=== PATIENT | female | born 1950 | race African-American/Black ===

== ENCOUNTER 2018-01-24 15:26 | Observation (INO) ==
--- NOTE | 2018-01-24 15:38 | Emergency Department Note ---
Disposition Clinical Impression: Lightheaded Chest pain Qualifiers: Chest pain type: unspecified Qualified Code(s): R07.9 - Chest pain, unspecified Disposition: Admitted As Inpatient Condition: Good Time of Disposition: 18:58 General Adult HPI - General Stated complaint: "dizziness,weak,abd pain" Time Seen by Provider: 01/24/18 15:38 Source: patient Mode of arrival: ambulatory Limitations: no limitations Nursing Notes Reviewed: Yes Vital Signs Reviewed: Yes - History of Present Illness HPI Narrative: I have reperformed and reviewed the history documented by the medical student, and I confirm its accuracy except as noted below. - Related Data Home Medications Medication Instructions Recorded Confirmed Blood Pressure Pills 11/17/16 Diabetic Pills 11/17/16 Previous Rx's Medication Instructions Recorded Meclizine [Antivert] 25 mg PO TID #15 tablet 10/09/15 Benzonatate [Tessalon] 100 mg PO TID #15 capsule 11/17/16 Guaifenesin [Mucinex] 600 mg PO BID #30 tab.er.12h 11/17/16 PredniSONE [Deltasone] 20 mg PO DAILY #12 tablet 11/17/16 levoFLOXacin [Levaquin] 500 mg PO DAILY #10 tablet 11/17/16 Lidocaine Patch [Lidoderm 5% patch] 1 each TP DAILY #10 adh..patch 12/12/16 OxyCODONE/APAP 5/325 [Percocet 1 each PO Q6HR PRN #10 tablet 12/12/16 5/325 MG] Allergies Allergy/AdvReac Type Severity Reaction Status Date / Time Xuptzna-Pgd-Csu Reductase Allergy Anaphylaxis Verified 01/24/18 15:46 Inhibitor Sulfa (Sulfonamide Allergy Anaphylaxis Verified 01/24/18 15:46 Antibiotics) All systems ED: reviewed and negative except as stated. Review of Systems: As Per HPI Constitutional: Denies: fever, chills Respiratory: Reports: cough (Increase.), dyspnea (Occasional, this time.), spu neel production Gastrointestinal: Reports: abdominal pain (Patient states earlier. Has resolved. Has also been having intermittent cramping.) Neurological: Reports: other ("Dizziness." Denies rotational.). Denies: headache Past Medical History - Past Medical History Attestation: Yes The following information was validated with the patient. Source: patient Medical history: Reports: COPD, diabetes, hypertension, other Psychiatric history: Reports: no psych history - Social History Smoking Status: Current every day smoker Smokeless Tobacco Status: No Alcohol use: Reports: none Drug use: Reports: none Physical Exam - General Limitations: no limitations General appearance: alert, in no apparent distress - Head Head exam: atraumatic, normocephalic, normal inspection - Eye Eye exam: Present: normal appearance, PERRL, EOMI. Absent: scleral icterus - ENT ENT exam: normal exam, normal oropharynx, mucous membranes moist - Neck Neck exam: Present: normal inspection, full ROM, trachea midline - Chest Chest inspection: Present: normal inspection, symmetric chest wall rise - Respiratory Respiratory exam: Present: normal lung sounds bilaterally. Absent: respiratory distress, accessory muscle use - Cardiovascular Cardiovascular exam: Present: regular rate, normal rhythm, normal heart sounds - Abdominal Exam Abdominal exam: Present: soft, Non-Tender. Absent: tenderness, distention, guarding, rebound, rigidity, organomegaly, Humphreys's sign, Rovsing's sign, tenderness at McBurney's Point - Extremities Exam Extremities exam: Present: normal inspection, full ROM, normal capillary refill. Absent: tenderness, pedal edema, calf tenderness - Back Exam Back exam: Present: normal inspection, full ROM. Absent: tenderness - Neurological Exam Neurological exam: Present: alert, oriented X3, CN II-XII intact, other (Good Finger to nose and [id number].). Absent: motor sensory deficit - Psychiatric Psychiatric exam: Present: normal affect, normal mood - Skin Skin exam: Present: warm, dry, intact, normal color Course Course Narrative: Female patient presenting to the emergency department complaining of a lightheadedness feeling. Does have a history of vertigo. Has tried meclizine to help with this with no relief. Is neurologically intact. Cranial nerves II through XII are intact and she has good finger to nose and heel to viveros. She do es report a lightheadedness. She describes the dizziness that she is reporting as a lightheaded feeling. This is worse after she stands up. She denies a rotational component. Patient is also complaining of an episode of shortness of breath associated with chest pain and epigastric pain that radiated up to her right neck are to arrival here. Patient does have an history of a stent placed. Patient does take a baby aspirin at home and Plavix. We did provide her with low-dose aspirin while here. She states that the chest pain is gone at this time. She does report a cough for the past week. Chest x-ray and basic lab workup was unremarkable. She does report a decreased by mouth intake as she is just feeling weak recently. She also complains of occasional cramping sensation throughout her abdomen. - Reevaluation(s) Reevaluation #1: We will admit patient to the hospital for her chest pain episode. She does have an elevated heart score because she does have a history of known coronary artery disease. - Consultations Consultation #1: Dr Hdz accepted Pt in stable condition. She is requesting a CT head. We did place is ordered for her and she will be following up with the imaging. Time: 18:09 Vital Signs Temperature 98.4 F 01/24/18 15:45 Pulse Rate 63 01/24/18 15:45 Respiratory Rate 18 01/24/18 15:45 Blood Pressure 130/73 01/24/18 15:45 O2 Sat by Pulse Oximetry 98 01/24/18 15:45 Temperature 98.4 F 01/24/18 16:00 Pulse Rate 63 01/24/18 16:00 Respiratory Rate 18 01/24/18 16:00 Blood Pressure 130/73 01/24/18 16:00 O2 Sat by Pulse Oximetry 98 01/24/18 16:00 Oxygen Delivery Oxygen Delivery Room Air Medical Decision Making - Medical Records Medical records reviewed: Yes I reviewed the patient's medical records. - Lab Data Lab results reviewed: Yes I reviewed the patient's lab results. Result diagrams: 01/24/18 16:33 01/24/18 16:33 Lab Results 01/24/18 01/24/18 01/24/18 Range/Units 16:33 16:33 16:33 WBC 9.4 (4.3-11.1) K/mcL RBC 4.39 (3.82-4.97) M/mcL Hgb 14.4 (11.5-15.4) g/dL Hct 42.6 (35.3-44.9) % MCV 97.0 (83.0-100.0) fL MCH 32.8 (28.0-33.3) pg MCHC 33.8 (31.6-35.5) g/dL RDW 13.3 (11.5-14.5) % Plt Count 231 (140-400) K/mcL MPV 10.2 (9.4-12.4) fL Immature Gran % 0.2 (0-4) % Seg Neutrophils % 68.9 % Lymphocytes % 20.6 % Monocytes % 6.1 % Eosinophils % 3.8 % Basophils % 0.4 % Neutrophils # 6.5 (1.6-8.9) K/mcL Lymphocytes # 1.9 (0.6-4.6) K/mcL Monocytes # 0.6 (0.0-1.3) K/mcL Eosinophils # 0.4 (0.0-0.6) K/mcL Basophils # 0.0 (0.0-0.2) K/mcL PT 11.9 (9.4-12.1) Seconds INR 1.1 APTT 33.4 (26.0-36.0) Seconds Sodium (136-145) mEq/L Potassium (3.5-5.1) mEq/L Chloride (98-107) mEq/L Carbon Dioxide (23-29) mEq/L BUN (8-23) mg/dL Creatinine (0.60-1.20) mg/dL Est GFR ( Amer) (> 60) Est GFR (Non-Af Amer) (> 60) BUN/Creatinine Ratio (6-26) Glucose (70-105) mg/dL Calculated Osmolality (280-300) Calcium (8.6-10.3) mg/dL Troponin I (< 0.04) ng/mL B-Natriuretic Peptide 119 H (Less than 100) pg/mL 01/24/18 Range/Units 16:33 WBC (4.3-11.1) K/mcL RBC (3.82-4.97) M/mcL Hgb (11.5-15.4) g/dL Hct (35.3-44.9) % MCV (83.0-100.0) fL MCH (28.0-33.3) pg MCHC (31.6-35.5) g/dL RDW (11.5-14.5) % Plt Count (140-400) K/mcL MPV (9.4-12.4) fL Immature Gran % (0-4) % Seg Neutrophils % % Lymphocytes % % Monocytes % % Eosinophils % % Basophils % % Neutrophils # (1.6-8.9) K/mcL Lymphocytes # (0.6-4.6) K/mcL Monocytes # (0.0-1.3) K/mcL Eosinophils # (0.0-0.6) K/mcL Basophils # (0.0-0.2) K/mcL PT (9.4-12.1) Seconds INR APTT (26.0-36.0) Seconds Sodium 139 (136-145) mEq/L Potassium 3.7 (3.5-5.1) mEq/L Chloride 106 (98-107) mEq/L Carbon Dioxide 26 (23-29) mEq/L BUN 14 (8-23) mg/dL Creatinine 0.59 L (0.60-1.20) mg/dL Est GFR ( Amer) > 60 (> 60) Est GFR (Non-Af Amer) > 60 (> 60) BUN/Creatinine Ratio 24 (6-26) Glucose 157 H (70-105) mg/dL Calculated Osmolality 292 (280-300) Calcium 9.6 (8.6-10.3) mg/dL Troponin I < 0.03 (< 0.04) ng/mL B-Natriuretic Peptide (Less than 100) pg/mL - Radiology Data Radiology results reviewed: Yes I reviewed the patient's radiology results. Chest X-Ray 01/24/18 16:12 IMPRESSION: No acute process. D/ / Eric Smith MD / Eric Smith MD Interpreting Provider: Eric Smith MD - EKG Data EKG #1 EKG attestation: Yes I reviewed and interpreted this EKG. EKG results narrative: Normal sinus rhythm at a rate of 60. AK interval is 252. QRS duration is 100. QT is 399. QTC is 399. No signs of acute ischemia. Does have 2 PVCs noted on this EKG.
--- NOTE | 2018-01-24 16:16 | Emergency Department Note ---
Disposition Clinical Impression: Abdominal pain Qualifiers: Abdominal location: generalized Qualified Code(s): R10.84 - Generalized abdominal pain Disposition: Still a Patient General Adult HPI - General Chief complaint: ED Abdominal Pain Stated complaint: "dizziness,weak,abd pain" Time Seen by Provider: 01/24/18 15:38 Source: patient Limitations: no limitations Nursing Notes Reviewed: Yes Vital Signs Reviewed: Yes - History of Present Illness HPI Narrative: Attestation note: Patient was seen with the emergency medicine resident/nurse practitioner/physician emergency room physician assistant/transitional resident/medical student: Dr. Gloria Alfred I have personally performed a face to face evaluation on this patient. I have reviewed and agree with history and physical examination patient management and disposition. Briefly the salient points of the case are as follows: 67-year-old female presents with chest and abdominal pain some cough low-grade fever no chills no vomiting or diarrhea. Chest is occasional rhonchi afebrile with stable vital signs chest x-ray and screening labs are pending. Disposition pending Pain Scale: 3 - Related Data Home Medications Medication Instructions Recorded Confirmed Blood Pressure Pills 11/17/16 Diabetic Pills 11/17/16 Previous Rx's Medication Instructions Recorded Meclizine [Antivert] 25 mg PO TID #15 tablet 10/09/15 Benzonatate [Tessalon] 100 mg PO TID #15 capsule 11/17/16 Guaifenesin [Mucinex] 600 mg PO BID #30 tab.er.12h 11/17/16 PredniSONE [Deltasone] 20 mg PO DAILY #12 tablet 11/17/16 levoFLOXacin [Levaquin] 500 mg PO DAILY #10 tablet 11/17/16 Lidocaine Patch [Lidoderm 5% patch] 1 each TP DAILY #10 adh..patch 12/12/16 OxyCODONE/APAP 5/325 [Percocet 1 each PO Q6HR PRN #10 tablet 12/12/16 5/325 MG] Allergies Allergy/AdvReac Type Severity Reaction Status Date / Time Lpeczbk-Mlb-Uza Reductase Allergy Anaphylaxis Verified 01/24/18 15:46 Inhibitor Sulfa (Sulfonamide Allergy Anaphylaxis Verified 01/24/18 15:46 Antibiotics) Past Medical History - Past Medical History Medical history: Reports: COPD, diabetes, hypertension, other Psychiatric history: Reports: no psych history - Social History Smoking Status: Current every day smoker Smokeless Tobacco Status: No Alcohol use: Reports: none Drug use: Reports: none Physical Exam - General Limitations: no limitations General appearance: alert, in no apparent distress Course Vital Signs Temperature 98.4 F 01/24/18 15:45 Pulse Rate 63 01/24/18 15:45 Respiratory Rate 18 01/24/18 15:45 Blood Pressure 130/73 01/24/18 15:45 O2 Sat by Pulse Oximetry 98 01/24/18 15:45 Temperature 98.4 F 01/24/18 16:00 Pulse Rate 63 01/24/18 16:00 Respiratory Rate 18 01/24/18 16:00 Blood Pressure 130/73 01/24/18 16:00 O2 Sat by Pulse Oximetry 98 01/24/18 16:00 Oxygen Delivery Oxygen Delivery Room Air
[2018-01-24] MEDS ORDERED: Aspirin 325 MG TABLET PO ONE (16:41)
--- NOTE | 2018-01-24 16:44 | Emergency Department Note ---
Disposition Clinical Impression: Abdominal pain Qualifiers: Abdominal location: generalized Qualified Code(s): R10.84 - Generalized abdominal pain Disposition: Still a Patient Forms: ED Satisfaction Letter, Work/School Release Dizziness HPI - General Chief Complaint: ED Abdominal Pain Stated Complaint: "dizziness,weak,abd pain" Time Seen by Provider: 01/24/18 15:38 Source: patient, family, other (housemate) Limitations: no limitations Vital Signs Reviewed: Yes - History of Present Illness HPI Narrative: Ms. Maguire is a 67yof with hx of vertigo, CAD with stent placed in 2005, HTN, DM2, COPD 2/2 smoking. She presents to the ED with complaint of intractable dizziness. Dizziness has been ongoing for the last 4 days, says it feels different than her usual vertigo, is a/w positional changes, feels lightheaded and "wonky" when she gets up to walk, has difficutly walking d/t dizziness, denies falling to one side, denies syncope/falls; pt has not taken her antivert., denies any recent changes in her blood pressure meds. Pt reports that she has been "fighting a cold" for the last 2-3 weeks, has a productive cough increased from baseline and cold sweats/chills. Per housemate, she has been sleeping significantly more in the last 4-5 days; pt admits to generalized malaise and feeling fatigued. Pt also notes that she has been having some lower abd cramping over the last few days, not associated with food, no constipation/diarrhea/hematochezia/melena. 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 Pt Subjective Complaint: lightheadedness, difficulty walking Onset (ago): day(s) (4) Timing: gradual onset Description: lightheadedness, off-balance, difficulty walking History of similar episodes: Yes (says this feels different than her usual vertigo) History of trauma: No Severity: moderate Improves with: remaining still, rest, other (laying down) Worsens with: position Associated symptoms: Reports: ataxia, chest pain, chills, malaise, shortness of breath, weakness (generalized). Denies: confusion, diaphoresis, fever, syncope, vision changes, nausea, vomiting, palpitations - Related Data Home Medications Medication Instructions Recorded Confirmed Blood Pressure Pills 11/17/16 Diabetic Pills 11/17/16 Previous Rx's Medication Instructions Recorded Meclizine [Antivert] 25 mg PO TID #15 tablet 10/09/15 Benzonatate [Tessalon] 100 mg PO TID #15 capsule 11/17/16 Guaifenesin [Mucinex] 600 mg PO BID #30 tab.er.12h 11/17/16 PredniSONE [Deltasone] 20 mg PO DAILY #12 tablet 11/17/16 levoFLOXacin [Levaquin] 500 mg PO DAILY #10 tablet 11/17/16 Lidocaine Patch [Lidoderm 5% patch] 1 each TP DAILY #10 adh..patch 12/12/16 OxyCODONE/APAP 5/325 [Percocet 1 each PO Q6HR PRN #10 tablet 12/12/16 5/325 MG] Allergies Allergy/AdvReac Type Severity Reaction Status Date / Time Lefaebl-Yjy-Kga Reductase Allergy Anaphylaxis Verified 01/24/18 15:46 Inhibitor Sulfa (Sulfonamide Allergy Anaphylaxis Verified 01/24/18 15:46 Antibiotics) Review of Systems: As Per HPI Constitutional: Reports: chills (cold sweats), weakness (generalized, non- focal). Denies: fever Eyes: Denies: vision change ENT ED: Denies: throat pain, hearing loss, epistaxis Cardiovascular: Reports: chest pain (1hr DAILY SAL[employer] AUDIT CLERK). Denies: palpitations, dyspnea on exertion, edema, syncope Respiratory: Reports: cough, sputum production (increased from baseline). De nies: dyspnea, wheezes, hemoptysis Gastrointestinal: Reports: abdominal pain (lower abd cramping). Denies: nausea, vomiting, diarrhea, constipation, melena, hematochezia Genitourinary: Denies: urgency, dysuria, frequency, hematuria, discharge Musculoskeletal: Denies: arthralgia, myalgia Integumentary: Denies: rash, lesions Neurological: Reports: weakness (generalized, non-focal), abnormal gait (2/2 dizziness upon position change), vertigo. Denies: headache, numbness, p aresthesias, confusion Endocrine: Reports: fatigue Hematological/Lymphatic: Reports: other (on 81mg ASA and plavix ) Past Medical History - Past Medical History Medical history: Reports: COPD, diabetes, hypertension, other Psychiatric history: Reports: no psych history - Social History Smoking Status: Current every day smoker Smokeless Tobacco Status: No Alcohol use: Reports: none Drug use: Reports: none Physical Exam - General Limitations: no limitations General appearance: alert, in no apparent distress Course Vital Signs Temperature 98.4 F 01/24/18 15:45 Pulse Rate 63 01/24/18 15:45 Respiratory Rate 18 01/24/18 15:45 Blood Pressure 130/73 01/24/18 15:45 O2 Sat by Pulse Oximetry 98 01/24/18 15:45 Temperature 98.4 F 01/24/18 16:00 Pulse Rate 63 01/24/18 16:00 Respiratory Rate 18 01/24/18 16:00 Blood Pressure 130/73 01/24/18 16:00 O2 Sat by Pulse Oximetry 98 01/24/18 16:00 Oxygen Delivery Oxygen Delivery Room Air
[2018-01-24 16:51] LABS: Basophils % 0.4 %; Eosinophils # 0.4 K/mcL (0.0-0.6); Eosinophils % 3.8 %; Hematocrit 42.6 % (35.3-44.9); Hemoglobin 14.4 g/dL (11.5-15.4); Immature Granulocytes % 0.2 % (0-4); Lymphocytes # 1.9 K/mcL (0.6-4.6); Lymphocytes % 20.6 %; Mean Corpuscular HGB Conc 33.8 g/dL (31.6-35.5); Mean Corpuscular Hemoglobin 32.8 pg (28.0-33.3); Mean Platelet Volume 10.2 fL (9.4-12.4); Monocytes # 0.6 K/mcL (0.0-1.3); Monocytes % 6.1 %; Neutrophils # 6.5 K/mcL (1.6-8.9); Platelet Count 231 K/mcL (140-400); Red Blood Count 4.39 M/mcL (3.82-4.97); Red Cell Distribution Width 13.3 % (11.5-14.5); Segmented Neutrophils % 68.9 %
[2018-01-24 16:59] LABS: INR 1.1; Prothrombin Time 11.9 Seconds (9.4-12.1)
[2018-01-24 17:01] LABS: Activated Partial Thrombo Time 33.4 Seconds (26.0-36.0)
[2018-01-24 17:13] LABS: BUN/Creatinine Ratio 24 (6-26); Blood Urea Nitrogen 14 mg/dL (8-23); Calcium 9.6 mg/dL (8.6-10.3); Carbon Dioxide 26 mEq/L (23-29); Chloride 106 mEq/L (98-107); Glucose 157 mg/dL (70-105); Osmolality,Calculated 292 (280-300); Potassium 3.7 mEq/L (3.5-5.1); Sodium 139 mEq/L (136-145); Troponin I < 0.03 ng/mL (< 0.04); eGFR For Non-African Americans > 60 (> 60)
[2018-01-24] MEDS ORDERED: diazePAM 10 MG/2 ML SYRINGE IVP STA (17:39)
--- NOTE | 2018-01-24 19:36 | Internal Med History&Physical ---
Addendum entered and electronically signed by Trice Laureano MD 01/26/18 06:39: Patient was seen and examined on 01/24/2018 Original Note: <Eulalia Jackson N - Last Filed: 01/25/18 01:56> Date of Encounter: 01/25/18 Time of Encounter: 19:36 Internal Medicine - H&P: HPI Chief complaint: Chest pain/dizziness/fatigue Admitted From: Emergency Dept History of present illness: Ms. Maguire is a 67 year old female with history of COPD, diabetes, hypertension, vertigo, and prior heart stents. She presents to the ED complaining of worsening dizziness that originally began last . She describes this sensation as feeling "woozy", and denies any loss of consciousness or spinning sensation. She states that she is still able to ambulate if she focuses on what she is doing, though she does still stagger a bit. She says that these episodes of dizziness are triggered by changes in position, particularly when she stands. She reports experiencing crampy abdominal pain even without a dizzy sensation. She has denies any alleviating factors other than rest. She reports no aggravating factors. She also reports having experienced cramping abdominal pain that moved from her lower abdomen up into her chest and finally ended in the right side of her neck immediately prior to presenting to the emergency department today. She also complained of feeling increasingly fatigued, and endorsed recent chest congestion and poor PO intake. Initial vital signs obtained in the ED were within normal limits. Laboratory studies were unremarkable, with the exception of a minimally elevated BNP of 119. Chest x-ray demonstrated no acute process. EKG demonstrated no signs of acute ischemia; however, considering the patient's prior stent history and elevated cardiac risk factors, she was admitted to the hospitalist service for overnight monitoring. Patient was seen and evaluated at the bedside. She endorsed no acute complaints or concerns, and stated only that she was tired. Review of systems was significant for one headache that occurred sometime last week, recent sinus and chest congestion, and mild productive cough several days ago that was improved with [id number] decongestants. Patient denied any changes in vision, nausea, vomiting, changes in bowel habits, or increased lower extremity edema. Past Med Surg Social Fam HX - Past Medical History Medical history: COPD, diabetes, hypertension, other Psychiatric history: no psych history - Past Surgical History Additional surgical history: heart stent, eye procedure, knee surgery breast biopsy - Social History Smoking Status: Current every day smoker Smokeless Tobacco Status: No Alcohol use: none Drug use: none - Family History Mother Hx Family Cardiac Disorders: Yes Hx Family Endocrine Disorder: Yes (dm) Father Hx Family Endocrine Disorder: Yes Internal Medicine - H&P: Meds Albuterol Sulfate [Ventolin Hfa] 8 gm IH QID PRN 01/24/18 [History] Aspirin [Lo-Dose Aspirin EC] 81 mg PO DAILY 01/24/18 [History] Clopidogrel [Plavix] 75 mg PO DAILY 01/24/18 [History] Fluticasone/Salmeterol [Advair 250-50 Diskus] 1 each IH BID 01/24/18 [History] Glipizide 01/24/18 [History] Liraglutide [Victoza 2-Maximo] 0.6 mg SQ DAILY 01/24/18 [History] Lisinopril [Zestril] 5 mg PO DAILY 01/24/18 [History] Lovastatin 10 mg PO DAILY 01/24/18 [History] Meclizine [Antivert] 25 mg PO DAILY 01/24/18 [History] Metoprolol [Lopressor] 25 mg PO HS 01/24/18 [History] Metoprolol [Lopressor] 100 mg PO QAM 01/24/18 [History] Pantoprazole Sodium 40 mg PO DAILY 01/24/18 [History] Primidone [Mysoline] 125 mg PO Q8HR 01/24/18 [History] hydroCHLOROthiazide [Hydrochlorothiazide] 12.5 mg PO DAILY 01/24/18 [History] Allergy/AdvReac Type Severity Reaction Status Date / Time Rctxzwm-Wfh-Xif Reductase Allergy Anaphylaxis Verified 01/24/18 15:46 Inhibitor Sulfa (Sulfonamide Allergy Anaphylaxis Verified 01/24/18 15:46 Antibiotics) All Systems PM: A 10-system review of systems was performed and is negative for pertinent findings except as documented above in the HPI. - Constitutional Vitals: Temp Pulse Resp BP Pulse Ox 98.4 F 71 18 143/68 98 01/24/18 16:00 01/24/18 17:33 01/24/18 17:33 01/24/18 17:33 01/24/18 17:33 Exam: GENERAL: Well-developed, well-nourished adult female lying in bed with her eyes closed. She does not appear to be in acute distress. HEENT: Atraumatic and normocephalic. CARDIOVASCULAR: Regular rate and rhythm. S1 and S2 present. No murmurs, gallops, or rubs appreciated. RESPIRATORY: Mildly decreased breath sounds bilaterally. Patient does have very mild expiratory wheezes on the left. Chest rises and falls symmetrically with respiration. No sensory muscle use noted. GASTROINTESTINAL: Active bowel sounds present 4 quadrants. Abdomen is soft, nontender, nondistended. EXTREMITIES: No clubbing, cyanosis, or edema. SKIN: Warm, dry, and intact. NEUROLOGIC: Patient answers questions appropriately and is cooperative with exam. No apparent focal deficits. PSYCHIATRIC: Appropriate mood and affect. Internal Med - H&P Results - Labs CBC & Chem 7: 01/25/18 00:40 01/25/18 00:40 Labs: Short CBC 01/24/18 Range/Units 16:33 WBC 9.4 (4.3-11.1) K/mcL Hgb 14.4 (11.5-15.4) g/dL Hct 42.6 (35.3-44.9) % Plt Count 231 (140-400) K/mcL Neutrophils # 6.5 (1.6-8.9) K/mcL BMP 01/24/18 16:33 Sodium 139 Potassium 3.7 Chloride 106 Carbon Dioxide 26 BUN 14 Creatinine 0.59 L Glucose 157 H Calcium 9.6 Cardiac Enzymes 01/24/18 Range/Units 16:33 Troponin I < 0.03 (< 0.04) ng/mL - Impressions ITS Impressions Chest X-Ray 01/24/18 16:12 IMPRESSION: No acute process. D/ / Eric Smith MD / Eric Smith MD Interpreting Provider: Eric Smith MD Head CT 01/24/18 18:07 IMPRESSION: Multiple old infarcts Multifocal low-density in the white matter suggesting small vessel ischemic change There is no finding to suggest an acute infarct No acute hemorrhage D/ / Kane Hahn / Kane Hahn Interpreting Provider: Kane Hahn - Assessment and plan (1) Chest pain Current Visit: Yes Status: Acute Assessment and plan: Unclear etiology. Patient does have history of stent placement in the past. - Telemetry monitoring - Trend troponins 3 Qualifiers: Chest pain type: unspecified Qualified Code(s): R07.9 - Chest pain, unspecified (2) Lightheaded Current Visit: Yes Status: Acute Assessment and plan: Etiology unknown. Patient denies any loss of consciousness or spinning sensation. She does report feeling more fatigued and endorses poor by mouth intake over the last several days, which may be contributory. - Telemetry monitoring for cardiac arrhythmia - Obtain orthostatic blood pressure and vital signs - We will hold primidone tonight due to risk of causing dizziness (3) COPD (chronic obstructive pulmonary disease) Current Visit: Yes Status: Acute Assessment and plan: Known history of COPD. Patient does not appear to be having an acute exacerbation of her illness. - Continue home breathing medications - Duonebs Q4H PRN Qualifiers: COPD type: unspecified COPD Qualified Code(s): J44.9 - Chronic obstructive pulmonary disease, unspecified (4) Diabetes Current Visit: Yes Status: Acute Assessment and plan: - Accuchecks ACHS - Low-dose corrective SSI PRN Qualifiers: Diabetes mellitus type: type 2 Diabetes mellitus long-term insulin use: without long-term use Diabetes mellitus complication status: with unspecified complications Qualified Code(s): E11.8 - Type 2 diabetes mellitus with unspecified complications (5) DVT prophylaxis Current Visit: Yes Status: Acute Assessment and plan: - Heparin 5000units SQ Q8H (6) Hypertension Current Visit: Yes Status: Acute Assessment and plan: - Continue home medications of hydrochlorothiazide, lisinopril, and metoprolol Qualifiers: Hypertension type: essential hypertension Qualified Code(s): I10 - Essential (primary) hypertension - Time Spent With Patient Total time spent is greater than 50% in coordination of care (as documented) at patient's floor/unit and/or counseling patient: <Trice Laureano - Last Filed: 01/25/18 05:43> Date of Encounter: 01/25/18 Internal Medicine - H&P: HPI History of present illness: Ms. Maguire is a 67 year old female All Systems PM: A 10-system review of systems was performed and is negative for pertinent findings except as documented above in the HPI. - Constitutional Vitals: Temp Pulse Resp BP Pulse Ox 98.1 F 57 16 142/91 96 01/25/18 03:41 01/25/18 03:41 01/25/18 03:41 01/25/18 03:41 01/25/18 03:41 Internal Med - H&P Results - Labs CBC & Chem 7: 01/25/18 00:40 01/25/18 00:40 Labs: Short CBC 01/24/18 01/25/18 Range/Units 16:33 00:40 WBC 9.4 10.0 (4.3-11.1) K/mcL Hgb 14.4 13.8 (11.5-15.4) g/dL Hct 42.6 40.3 (35.3-44.9) % Plt Count 231 231 (140-400) K/mcL Neutrophils # 6.5 5.8 (1.6-8.9) K/mcL BMP 01/24/18 01/25/18 16:33 00:40 Sodium 139 141 Potassium 3.7 3.7 Chloride 106 107 Carbon Dioxide 26 26 BUN 14 17 Creatinine 0.59 L 0.74 Glucose 157 H 89 Calcium 9.6 9.4 Cardiac Enzymes 01/24/18 01/25/18 Range/Units 16:33 00:40 Troponin I < 0.03 < 0.03 (< 0.04) ng/mL - Impressions ITS Impressions Chest X-Ray 01/24/18 16:12 IMPRESSION: No acute process. D/ / Eric Smith MD / Eric Smith MD Interpreting Provider: Eric Smith MD Head CT 01/24/18 18:07 IMPRESSION: Multiple old infarcts Multifocal low-density in the white matter suggesting small vessel ischemic change There is no finding to suggest an acute infarct No acute hemorrhage D/ / Kane Hahn / Kane Hahn Interpreting Provider: Kane Hahn - Assessment and plan (1) Chest pain Current Visit: Yes Status: Acute Qualifiers: Chest pain type: unspecified Qualified Code(s): R07.9 - Chest pain, unspecified (2) Lightheaded Current Visit: Yes Status: Acute (3) Diabetes Current Visit: Yes Status: Acute Qualifiers: Diabetes mellitus type: type 2 Diabetes mellitus long-term insulin use: without intermodal dispatcher use Diabetes mellitus complication status: with unspecified complications Qualified Code(s): E11.8 - Type 2 diabetes mellitus with unspecified complications (4) COPD (chronic obstructive pulmonary disease) Current Visit: Yes Status: Acute Qualifiers: COPD type: unspecified COPD Qualified Code(s): J44.9 - Chronic obstructive pulmonary disease, unspecified (5) DVT prophylaxis Current Visit: Yes Status: Acute (6) Hypertension Current Visit: Yes Status: Acute Qualifiers: Hypertension type: essential hypertension Qualified Code(s): I10 - Ess ential (primary) hypertension - Time Spent With Patient Total time spent is greater than 50% in coordination of care (as documented) at patient's floor/unit and/or counseling patient: - Attending Attestation I performed a history and physical examination of the patient and discussed the case with the resident. I reviewed the resident's note and agree with the documented assessment and plan. Patient is a 67-year-old female with a past medical history of COPD, diabetes, hypertension, vertigo and coronary artery disease status post stents who presents with symptoms of lightheadedness and chest pain. Patient reports having a upper respiratory tract infection with decreased by mouth intake for the past several days. Initial laboratory workup was unremarkable. CT scan of the head did not show any acute intracranial abnormality. Symptoms appear to be consistent with orthostatic hypotension which was found to be positive after assessment of on the floor in the setting of decreased PO intake. Initial EKG and troponins were negative. We will continue fluid support and trend troponins for now.
[2018-01-24] MEDS ORDERED: Naloxone 0.4 MG/ML INJ IVP PRN (21:46)
[2018-01-24] MEDS ORDERED: D5% in Water 1,000 ML IVC PRN (21:47)
[2018-01-24] MEDS ORDERED: *HR* Dextrose 50 % in Water (Syg) 50 ML SYRINGE IVP PRN (21:47)
[2018-01-24] MEDS ORDERED: Dextrose Gel 15 GM/37.5 ML TUBE PO PRN ×2 (21:47)
[2018-01-24] MEDS ORDERED: Insulin LISPRO 300 UNITS/3 ML VIAL SQ SCH (22:00)
[2018-01-24] MEDS: Insulin LISPRO 300 UNITS/3 ML VIAL SQ SCH (22:38)
[2018-01-24] MEDS: *HR* Heparin 5,000 UNIT/ML VIAL SQ SCH (23:37)
[2018-01-25 01:02] LABS: Basophils % 0.4 %; Eosinophils # 0.4 K/mcL (0.0-0.6); Eosinophils % 3.6 %; Hematocrit 40.3 % (35.3-44.9); Hemoglobin 13.8 g/dL (11.5-15.4); Immature Granulocytes % 0.3 % (0-4); Lymphocytes # 3.1 K/mcL (0.6-4.6); Lymphocytes % 31.2 %; Mean Corpuscular HGB Conc 34.2 g/dL (31.6-35.5); Mean Corpuscular Hemoglobin 32.5 pg (28.0-33.3); Mean Corpuscular Volume 94.8 fL (83.0-100.0); Mean Platelet Volume 10.1 fL (9.4-12.4); Monocytes # 0.7 K/mcL (0.0-1.3); Monocytes % 6.9 %; Neutrophils # 5.8 K/mcL (1.6-8.9); Platelet Count 231 K/mcL (140-400); Red Blood Count 4.25 M/mcL (3.82-4.97); Red Cell Distribution Width 13.2 % (11.5-14.5); Segmented Neutrophils % 57.6 %
[2018-01-25 01:20] LABS: BUN/Creatinine Ratio 23 (6-26); Blood Urea Nitrogen 17 mg/dL (8-23); Calcium 9.4 mg/dL (8.6-10.3); Carbon Dioxide 26 mEq/L (23-29); Chloride 107 mEq/L (98-107); Glucose 89 mg/dL (70-105); Osmolality,Calculated 293 (280-300); Potassium 3.7 mEq/L (3.5-5.1); Sodium 141 mEq/L (136-145); eGFR For Non-African Americans > 60 (> 60)
[2018-01-25] MEDS ORDERED: 0.9 % Sodium Chloride 1,000 ML IVC SCH (03:45)
[2018-01-25] MEDS: *HR* Heparin 5,000 UNIT/ML VIAL SQ SCH (05:35)
[2018-01-25] MEDS: Insulin LISPRO 300 UNITS/3 ML VIAL SQ SCH (08:19)
[2018-01-25] MEDS ORDERED: Metoprolol 100 MG TABLET PO SCH (09:00)
[2018-01-25] MEDS ORDERED: LOVASTATIN 10 MG PO SCH (09:00)
[2018-01-25] MEDS ORDERED: Aspirin Enteric Coated 81 MG Tablet PO SCH (09:00)
[2018-01-25] MEDS ORDERED: hydroCHLOROthiazide 25 MG TABLET PO SCH (09:00)
[2018-01-25] MEDS ORDERED: Budesonide/Formoterol 80/4.5 MDI IH SCH (10:00)
[2018-01-25 11:02] VITALS: BP 148/81
--- NOTE | 2018-01-25 12:23 | Discharge Summary ---
- NOTES TO OUTPATIENT PROVIDER Notes to Outpatient Provider: Follow up with PCP in one week. change your blood pressure medication Lisinopril 5mg to 20mg. Changed your morning Metoprolol dose to 50mg from 100mg since your HR is slightly on lower side and you have 1 degree AV block Orders not resulted at time of discharge: Pending orders 01/25/18 11:59 EKG [ECG 12 lead ECG] [ECG] Routine Date of Encounter: 01/25/18 Time of Encounter: 12:23 - Discharge Diagnosis (1) Chest pain Priority: Secondary Status: Resolved Qualifiers: Chest pain type: unspecified Qualified Code(s): R07.9 - Chest pain, unspecified (2) Lightheaded Priority: Primary Status: Acute (3) First degree AV block Priority: Primary Status: Acute (4) Diabetes Priority: Secondary Status: Acute Qualifiers: Diabetes mellitus type: type 2 Diabetes mellitus ad terminal makeup operator insulin use: without ad terminal makeup operator use Diabetes mellitus complication status: with unspecified complications Qualified Code(s): E11.8 - Type 2 diabetes mellitus with unspecified complications (5) COPD (chronic obstructive pulmonary disease) Priority: Secondary Status: Acute Qualifiers: COPD type: unspecified COPD Qualified Code(s): J44.9 - Chronic obstructive pulmonary disease, unspecified (6) DVT prophylaxis Priority: Secondary Status: Acute (7) Hypertension Priority: Secondary Status: Acute Qualifiers: Hypertension type: essential hypertension Qualified Code(s): I10 - Essential (primary) hypertension Hospital course: Ms. Maguire is a 67 year old female with history of COPD, diabetes, hypertension, vertigo, and CAD s/p stents who recnelty had normal nuclear stress test on 12/31 pt presented to the ED complaining of worsening dizziness that originally began last . She describes this sensation as feeling "woozy", and denies any loss of consciousness or spinning sensation. She did mention that these episodes of dizziness are triggered by changes in position, particularly when she stands. She was admitted in the hospital, started her on IV hydration and placed her on compliance monitor. Initial EKG the ER showed prolonged OR interval @ 252 ( first-degree block ) with no acute ischemic changes , ST / T changes. Pt's all the troponin x 3 came back as negative. Her dizziness also improved. Repeated EKG today showed slightly improved OR interval @ 211. At this point made few changed to her BP meds.. Cut down on her BB Metoprolol AM dose to 50mg and increased Lisinopril to 20mg PO daily.. Discussed with the pt about all the medication changes and instructions. Recommend to continue taking Meclizine as needed and f/u with ENT if she continuous to have dizziness / vertigo. - Time Spent with Patient Total time spent providing and/or coordinating discharge services: - Discharge Medications Prescriptions: Lisinopril-HCTZ 20-12.5 [Prinzide 20-12.5] 1 each PO DAILY #30 tablet Meclizine [Antivert] 25 mg PO DAILY PRN #30 tablet PRN Reason: Dizziness Home Medications: Albuterol Sulfate [Ventolin Hfa] 8 gm IH QID PRN 01/24/18 [History] Aspirin [Lo-Dose Aspirin EC] 81 mg PO DAILY 01/24/18 [History] Clopidogrel [Plavix] 75 mg PO DAILY 01/24/18 [History] Fluticasone/Salmeterol [Advair 250-50 Diskus] 1 each IH BID 01/24/18 [History] Glipizide 01/24/18 [History] Liraglutide [Victoza 2-Maximo] 0.6 mg SQ DAILY 01/24/18 [History] Lovastatin 10 mg PO DAILY 01/24/18 [History] Metoprolol [Lopressor] 25 mg PO HS 01/24/18 [History] Pantoprazole Sodium 40 mg PO DAILY 01/24/18 [History] Primidone [Mysoline] 125 mg PO Q8HR 01/24/18 [History] Lisinopril-HCTZ 20-12.5 [Prinzide 20-12.5] 1 each PO DAILY #30 tablet 01/25/18 [Rx] Meclizine [Antivert] 25 mg PO DAILY PRN #30 tablet 01/25/18 [Rx] Metoprolol [Lopressor] 50 mg PO QAM #0 01/25/18 [Rx] Allergies/Adverse Reactions: Allergy/AdvReac Type Severity Reaction Status Date / Time Olvgrwz-Nxq-Mev Reductase Allergy Anaphylaxis Verified 01/24/18 15:46 Inhibitor Sulfa (Sulfonamide Allergy Anaphylaxis Verified 01/24/18 15:46 Antibiotics) Date of admission: 01/24/18 18:12 Primary care physician: Torsten Shelley MD - Constitutional Vitals: Temp Pulse Resp BP Pulse Ox 97.8 F 61 15 148/81 97 01/25/18 10:59 01/25/18 10:59 01/25/18 10:59 01/25/18 10:59 01/25/18 10:59 General appearance: Present: A&O X 3 Exam: Gen: Alert, awake, Oriented to time,place and person Chest: Diminished breath sounds B/L, No wheezing, No crackles, No rales Heart: S1S2+ RRR No murmurs Abd: Soft, NT, BS +, No organomegaly Ext: No edema, pulses are palpable, No calf tenderness Neuro : Benign findings Skin: No rash. - Patient Status Disposition: Home, Self-Care Condition: Good Overall status at discharge: patient is back to baseline - Discharge Instructions Follow Up With: Torsten Shelley MD [Primary Care Provider] - Angel Vang MD [Non-Partnered Physician] - - Diet and Activity Activity: increase activity as tolerated Diet: low salt diet
--- NOTE | 2018-01-26 22:17 | Electrocardiograph Report ---
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
--- NOTE | 2018-01-26 22:31 | Electrocardiograph Report ---
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
== END 2018-01-25 15:25 | disposition home or self-care (01) ==
LOC: EMEROOARM 15:26 → 3BNU 15:26
PROVIDERS: ADMIT Internal Medicine; ATTEND Internal Medicine